=== PATIENT | female | born 1955 | race Hispanic/Latino ===

== ENCOUNTER → 2020-10-07 | Outpatient (CLI) | payer OTHER | END | disposition home or self-care (01) | LOC: RAH 08:36 | PROVIDERS: ATTEND Family Medicine | DX: Z12.31 Encounter for screening mammogram for malignant neoplasm of breast (principal); Z00.01 Encounter for general adult medical examination with abnormal findings | CPT/HCPCS: 77067 ==

== ENCOUNTER 2021-08-27 01:50 | Emergency (ER) | payer OTHER ==
[~2021-08-27] VITALS: Ht 154.9 cm; Wt 64.4 kg
[2021-08-27 02:30] LABS: BASOPHILS % (AUTO) 0.3 % (0.0-5.0); EOSINOPHILS % (AUTO) 2.5 % (0.0-8.0); HEMATOCRIT 39.2 % (36-48); LYMPHOCYTES % (AUTO) 16.2 % (21.0-51.0); MEAN CORPUSCULAR HEMOGLOBIN 30.9 pg (27.0-33.0); MEAN CORPUSCULAR HGB CONC 32.7 g/dL (32.0-36.0); MEAN CORPUSCULAR VOLUME 94.7 fL (79-99); NEUTROPHILS % (AUTO) 73.8 % (40.0-77.0); PLATELET COUNT (AUTO) 197 K/uL (130-400); RED BLOOD CELL COUNT(AUTO) 4.14 MIL/uL (4.00-5.50); RED CELL DISTRIBUTION WIDTH 12.8 % (11.0-15.5); WHITE BLOOD COUNT (AUTO) 6.5 K/uL (4.8-10.8)
[2021-08-27 02:43] LABS: APPEARANCE,URINE Cloudy (CLEAR); BILIRUBIN,URINE Negative (NEGATIVE); COLOR,URINE Yellow (YELLOW); GLUCOSE, URINE (UA) Negative (NEGATIVE); KETONES,URINE Trace mg/dL (NEGATIVE); LEUKOCYTE ESTERASE ,URINE Trace (NEGATIVE); NITRATE,URINE Negative (NEGATIVE); OCCULT BLOOD,URINE Large (NEGATIVE); PROTEIN,URINE POS 1+ mg/dL (NEGATIVE); UROBILINOGEN,URINE 0.2 mg/dL (0.2-1.0)
[2021-08-27 02:43] LABS: CREATININE 0.7 mg/dL (0.5-1.5); POTASSIUM 3.3 mmol/L (3.5-5.1)
[2021-08-27 02:48] LABS: ALBUMIN 3.5 g/dL (3.5-5.0); BILIRUBIN,TOTAL 0.4 mg/dL (0.2-1.0); TOTAL PROTEIN, SERUM 6.9 g/dL (6.0-8.3)
[2021-08-27 02:59] LABS: BACTERIA,URINE Few /HPF (None Seen)
[2021-08-27] MEDS ORDERED: ACETAMINOPHEN 500 MG TABLET PO ONE (03:00)
[2021-08-27 04:58] VITALS: BP 90/46
[2021-08-27] MEDS ORDERED: CLINDAMYCIN IVPB 600MG/50ML 50 ML IV ONE (05:30)
[2021-08-27] MEDS ORDERED: ACET-2079 PO (05:53)
[2021-08-27] MEDS ORDERED: CLIN-141 PO (05:53)
== END 2021-08-27 06:25 | disposition home or self-care (01) ==
LOC: EDH 01:50
DX: L72.3 Sebaceous cyst (principal); R50.9 Fever, unspecified; R31.9 Hematuria, unspecified
CPT/HCPCS: 36415; 71045; 80053; 81001; 83605; 84484; 85025; 87040 ×2; 87804 ×2; 93005; 96365; 99285; J3490

== ENCOUNTER → 2022-08-11 | Outpatient (CLI) | payer OTHER ==
[~2022-08-11] MED LIST: ACET-2079 PO; CLIN-141 PO
== END | disposition home or self-care (01) ==
LOC: RAH 11:21
PROVIDERS: ATTEND Otolaryngology Plastic Surgery within the Head & Neck
DX: R22.1 Localized swelling, mass and lump, neck (principal)
CPT/HCPCS: 76536

== ENCOUNTER → 2022-09-04 | Outpatient (CLI) | payer OTHER | END | disposition home or self-care (01) | LOC: RAH 10:33 | PROVIDERS: ATTEND Family Medicine | DX: Z12.31 Encounter for screening mammogram for malignant neoplasm of breast (principal) | CPT/HCPCS: 77067 ==

== ENCOUNTER → 2023-09-06 | Outpatient (CLI) | payer OTHER | END | disposition home or self-care (01) | LOC: RAH 09:06 | PROVIDERS: ATTEND Family Medicine | DX: Z12.31 Encounter for screening mammogram for malignant neoplasm of breast (principal); R92.323 Mammographic fibroglandular density, bilateral breasts | CPT/HCPCS: 77067 ==

== ENCOUNTER → 2025-03-28 | Outpatient (CLI) | payer OTHER ==
--- NOTE | 2025-03-29 01:28 | HMCIMG ---
EXAM: MR THORACIC SPINE WITHOUT CONTRAST CLINICAL HISTORY: Pain in the thoracic spine. TECHNIQUE: Multiplanar and multisequence MR images of the thoracic spine obtained without IV contrast. CONTRAST: NONE COMPARISON: None specified. FINDINGS: VERTEBRAE: Hemangioma involving the right lateral aspect of the T9 vertebral body. No pathological fracture. Normal vertebral bodies and posterior elements, except for the T9 hemangioma. VERTEBRAL ALIGNMENT: Normal. There is preservation of the normal thoracic kyphosis. No scoliosis. DISCS: Mild disc desiccative changes are present at all levels with preserved height. No disc herniation. Normal central canal and neuroforamina. CORD: Unremarkable in signal and morphology. Normal conus medularis. 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 SOFT TISSUES: No facet joint edema. T9-T10 level demonstrates facet joint hypertrophy. There is an oval shaped T2 hyperintense lesion measuring approximately 4 x 9 mm in the right eighth rib posteriorly, with narrow zone of transition within normal bone. There is a right adrenal nodule measuring 1.3 x 1.4 cm. IMPRESSION: 1. No acute abnormality of the thoracic spine. 2. Mild disc desiccative changes at all levels with preserved height. 3. T9-T10 level demonstrates facet joint hypertrophy. 4. 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 No significant nerve root compression. 5. An oval T2 hyperintense lesion in the right eighth rib without pathological fracture. This is indeterminate in nature. Further evaluation with CT correlation is recommended. 6. A right adrenal nodule. This may represent a lipid rich adenoma. Further evaluation with contrast enhanced adrenal protocol CT scan is recommended. /[place]
== END | disposition home or self-care (01) ==
LOC: RAH 14:14
PROVIDERS: ATTEND Family Medicine
DX: M47.814 Spondylosis without myelopathy or radiculopathy, thoracic region (principal); E27.8 Other specified disorders of adrenal gland; G96.198 Other disorders of meninges, not elsewhere classified; D18.09 Hemangioma of other sites; M51.34 Other intervertebral disc degeneration, thoracic region
CPT/HCPCS: 72146